=== PATIENT | male | born 1950 | race Hispanic/Latino ===

== ENCOUNTER 2018-03-19 08:47 | Day surgery (SDC) | payer MEDICARE ==
[2018-03-16 12:44] VITALS: BP 116/61
[2018-03-16 12:54] LABS: BASOPHILS % (AUTO) 0.5 % (0.0-5.0); EOSINOPHILS % (AUTO) 2.1 % (0.0-8.0); HEMATOCRIT 38.6 % (42-54); LYMPHOCYTES % (AUTO) 32.1 % (21.0-51.0); MEAN CORPUSCULAR HEMOGLOBIN 28.6 pg (27.0-33.0); MEAN CORPUSCULAR HGB CONC 33.2 g/dL (32.0-36.0); MONOCYTES % (AUTO) 6.9 % (3.0-13.0); NEUTROPHILS % (AUTO) 58.4 % (40.0-77.0); PLATELET COUNT (AUTO) 221 K/uL (130-400); RED CELL DISTRIBUTION WIDTH 14.2 % (11.0-15.5); WHITE BLOOD COUNT (AUTO) 6.5 K/uL (4.8-10.8)
[2018-03-16 13:06] LABS: CREATININE 1.1 mg/dL (0.5-1.5); POTASSIUM 4.6 mmol/L (3.5-5.1)
[2018-03-16 13:08] LABS: INR 0.96 (0.85-1.15); PROTHROMBIN TIME 10.1 SEC (9.6-11.6)
[2018-03-16 13:26] LABS: APPEARANCE,URINE Clear (CLEAR); BILIRUBIN,URINE Negative (NEGATIVE); COLOR,URINE Yellow (YELLOW); GLUCOSE, URINE (UA) >=1000 mg/dL (NEGATIVE); KETONES,URINE Negative (NEGATIVE); LEUKOCYTE ESTERASE ,URINE Negative (NEGATIVE); NITRATE,URINE Negative (NEGATIVE); OCCULT BLOOD,URINE Negative (NEGATIVE); PROTEIN,URINE Negative (NEGATIVE); UROBILINOGEN,URINE 0.2 mg/dL (0.2-1.0)
[2018-03-16 13:30] LABS: BACTERIA,URINE Rare /HPF (None Seen); RBC,URINE 0-1 /HPF (0-1); SQUAMOUS EPITHELIAL CELL,UR Rare /HPF (0-2); WBC,URINE 0-1 /HPF (0-1)
[2018-03-18] MEDS: GENTAMICIN 80 MG/NS 100 ML PB 100 ML IV SCH (09:50)
[~2018-03-19] VITALS: Ht 162.6 cm; Wt 72.8 kg
[2018-03-19] VITALS (17 sets, daily range): BP systolic 103–144; BP diastolic 51–73
[~2018-03-19 08:47] MED LIST: ASPI-555 PO; CEFTRIAXONE SODIUM 1 GM IVP SCH; CLOP75TA14 PO; GLIP10TA9 PO; INSU100V12 SQ; INVOK100TB PO; LISI2.5T2 PO; METF10004 PO; OMEP20TA25 PO; ROSU10TA27 PO; SITA100T12 PO; TAMS-1 PO
[2018-03-19] MEDS ORDERED: SODIUM CHLORIDE 0.9% 1000ML 1,000 ML IV ONE (09:25)
[2018-03-19] MEDS: CEFTRIAXONE SODIUM 1 GM ONE ×2 (09:47→12:05)
[2018-03-19] MEDS: GENTAMICIN 80 MG/NS 100 ML PB 100 ML IV SCH (09:50)
[2018-03-19] MEDS ORDERED: PROPOFOL 10 MG/ML 20ML VIAL IV ONE (11:50)
[2018-03-19] MEDS ORDERED: FENTANYL CITRATE PF 50 MCG/1 ML 2ML VIAL ONE ×2 (11:50→13:24)
[2018-03-19] MEDS ORDERED: MIDAZOLAM HCL 1 MG/ML 2ML VIAL ONE (11:50)
[2018-03-19] MEDS ORDERED: GLYCOPYRROLATE 0.2 MG/ML 5 ML VIAL ONE (13:20)
[2018-03-19] MEDS ORDERED: LIDOCAINE PF 2% 5ML ABBOJECT ONE (13:20)
[2018-03-19] MEDS ORDERED: ROCURONIUM BROMIDE 10MG/1ML 5ML VL ONE (13:20)
[2018-03-19] MEDS ORDERED: NEOSTIGMINE 5MG/5ML SYR IV ONE (13:20)
[2018-03-19] MEDS ORDERED: IPRATROPIUM/ALBUTEROL SULFATE 3 ML SOLUTION IH ONE (14:44)
== END 2018-03-19 16:10 | disposition home or self-care (01) ==
LOC: DAH 08:47
PROVIDERS: ATTEND Urology
DX: N40.1 Benign prostatic hyperplasia with lower urinary tract symptoms (principal); N41.1 Chronic prostatitis; E11.9 Type 2 diabetes mellitus without complications; E78.5 Hyperlipidemia, unspecified; Z98.890 Other specified postprocedural states
CPT/HCPCS: 36415; 52648; 71045; 80048; 81001; 82948 ×2; 85025; 85610; 87088; 88305; 93005; 94640; 96365; A4354; A4358; A4600; J0696; J1580; J2001; J2250; J2704; J2710; J3010 ×2; J3490 ×2; J7030 ×2